=== PATIENT | male | born 1995 | race Caucasian/White ===

== ENCOUNTER 2016-03-08 10:26 | Emergency (ER) | payer SELFPAY ==
[~2016-03-08] VITALS: Ht 180.3 cm; Wt 102.1 kg
[2016-03-08 10:55] VITALS: BP 114/63
[2016-03-08] MEDS ORDERED: FLUT9.9S NS (11:41)
--- NOTE | 2016-03-08 11:41 | PHYS DOC ---
Past Medical History Past Medical History: No Pertinent History Past Surgical History: No Surgical History Smoking: Less than 1pk/day Alcohol Use: None Drug Use: None Adult General Chief Complaint Chief Complaint: EARACHE/EAR PAIN HPI HPI Patient is a 20 year old male who presents with ear pain for 3 days. He reports that he began to feel pressure in the right ear and now has both ears infected. He's also had nasal congestion. He denies fever, sore throat, cough, or drainage from the ears. He does not have a PCP. Review of Systems Review of Systems Constitutional: Denies fever or chills. [] Eyes: Denies change in visual acuity, redness, or eye pain. [] HENT: Denies sore throat. Reports bilateral ear pain and nasal congestion. Respiratory: Denies cough or shortness of breath. [] Integument: Denies rash or skin lesions. [] Neurologic: Denies headache, focal weakness or sensory changes. [] Allergies Allergies Allergies Coded Allergies Type Severity Reaction Last Updated Verified No Known Drug Allergies 03/08/16 No Physical Exam Physical Exam Constitutional: Well developed, well nourished, no acute distress, non-toxic appearance. [] HENT: Normocephalic, atraumatic, bilateral external ears normal, oropharynx moist, no oral exudates, nose normal. Bilateral TMs without erythema or bulging. There is no cerumen impaction. There is no posterior pharyngeal erythema or tonsillar edema. The bilateral nasal turbinates are swollen and erythematous with purulent drainage. Eyes: PERRLA, EOMI, conjunctiva normal, no discharge. [] Neck: Normal range of motion, no tenderness, supple, no stridor. [] Cardiovascular: Heart rate regular rhythm, no murmur [] Lungs & Thorax: Bilateral breath sounds clear to auscultation without wheezing , rales, or rhonchi. Skin: Warm, dry, no erythema, no rash. [] Neurologic: Alert and oriented X 3, normal motor function, normal sensory function, no focal deficits noted. [] Psychologic: Affect normal, judgement normal, mood normal. [] Current Patient Data Vital Signs Vital Signs Date Time Temp Pulse Resp B/P Pulse Ox O2 Delivery O2 Flow Rate FiO2 03/08/16 10:55 97.7 66 18 99 Room Air 97.7 EKG EKG [] Radiology/Procedures Radiology/Procedures [] Course & Med Decision Making Course & Med Decision Making Pertinent Labs and Imaging studies reviewed. (See chart for details) [] Dragon Disclaimer Dragon Disclaimer This electronic medical record was generated, in whole or in part, using a voice recognition dictation system. Departure Departure Impression: Primary Impression: Otalgia Additional Impression: Nasal congestion Disposition: 01 HOME, SELF-CARE Condition: STABLE Referrals: PATRICK ENRIQEUZ (PCP) Patient Instructions: Otalgia-Brief Additional Instructions: You do not have an infection in your ears or wax buildup. Your ear pain appears to be related to your nasal congestion. Please use the prescribed nasal spray to decrease nasal drainage and decreased swelling in the nose. Please use the prescribed nose spray daily. Please follow-up with a primary care doctor if your symptoms continue. Return to emergency department if you have any new or concerning symptoms. Scripts Fluticasone Propionate (Flonase Allergy Relief)9.9 Ml [place].susp2 Sprays NS DAILY #1 BOTTLE Prov:ERIN CASAS 03/08/16 Problem Qualifiers Primary Impression: Otalgia Laterality: bilateral Qualified Code: H92.03 - Otalgia, bilateral ERIN CASAS Mar 08, 2016 11:41
== END 2016-03-08 11:51 | disposition home or self-care (01) ==
LOC: ER 10:26
DX: H92.03 Otalgia, bilateral (principal); R09.81 Nasal congestion; F17.200 Nicotine dependence, unspecified, uncomplicated
CPT/HCPCS: 99282

== ENCOUNTER 2016-05-09 17:26 | Emergency (ER) | payer SELFPAY ==
[~2016-05-09] VITALS: Ht 180.3 cm; Wt 102.1 kg
[~2016-05-09 17:26] MED LIST: FLUT9.9S NS
[2016-05-09 17:29] VITALS: BP 130/72
[2016-05-09] MEDS ORDERED: IBUPROFEN 800 MG TABLET. PO ONE (18:00)
--- NOTE | 2016-05-09 18:04 | PHYS DOC ---
Past Medical History Past Medical History: No Pertinent History Past Surgical History: No Surgical History Additional Information: 1 PPD Alcohol Use: None Drug Use: None Adult General Chief Complaint Chief Complaint: DIZZY/LIGHT HEADED [facility] HPI Patient is a 20 year old male presents to the emergency department stating that he has had a cough congestion nausea vomiting with dizziness for the last 3 -4 days. He states that he had a fever when he checked in today. He has not taken anything [id number] for the discomfort. Patient does state he has a history of smoking. Patient states that he has vomited approximately 6 times within the last 24 hours. She'll states that the vomitus more of the mucous- type secretions, denies blood in the emesis. Review of Systems Review of Systems Constitutional: Denies fever or chills [] Eyes: Denies change in visual acuity, redness, or eye pain [] HENT: nasal congestion denies sore throat [] Respiratory: cough denies shortness of breath [] Cardiovascular: No additional information not addressed in HPI [] GI: Denies abdominal pain, nausea, vomiting, bloody stools or diarrhea [] : Denies dysuria or hematuria [] Musculoskeletal: Denies back pain or joint pain [] Integument: Denies rash or skin lesions [] Neurologic: headache, focal weakness or sensory changes [] Current Medications Current Medications Current Medications Medications (Trade) Dose Ordered Sig/Sowmya Start Time Stop Time Status Last Admin Dose Admin Ibuprofen (Motrin) 800 mg 1X ONCE 05/09/16 18:00 05/09/16 18:14 DC 05/09/16 18:06 800 MG Allergies Allergies Allergies Coded Allergies Type Severity Reaction Last Updated Verified No Known Drug Allergies 03/08/16 No Physical Exam Physical Exam Constitutional: Well developed, well nourished, no acute distress, non-toxic appearance. [] HENT: Normocephalic, atraumatic, bilateral external ears normal, oropharynx moist, no oral exudates, nose normal. Bilateral tympanic membranes appear to be normal. Patient frontal sinus tenderness. No maxillary sinus tenderness noted. Throat with erythematous, no exudate noted uvula appears to be with no deviation. Eyes: PERRLA, EOMI, conjunctiva normal, no discharge. [] Neck: Normal range of motion, no tenderness, supple, no stridor. [] Cardiovascular:Heart rate regular rhythm, no murmur [] Lungs & Thorax: Bilateral breath sounds clear to auscultation [] Skin: Warm, dry, no erythema, no rash. [] Back: No tenderness Extremities: No tenderness, no cyanosis, no clubbing, ROM intact, no edema. [] Neurologic: Alert and oriented X 3, normal motor function, normal sensory function, no focal deficits noted. [] Psychologic: Affect normal, judgement normal, mood normal. [] Current Patient Data Vital Signs Vital Signs Date Time Temp Pulse Resp B/P Pulse Ox O2 Delivery O2 Flow Rate FiO2 05/09/16 17:29 100.4 106 20 130/72 99 Room Air 100.4 Lab Values Laboratory Tests Test 05/09/16 17:20 Influenza Type A Antigen Negative (NEGATIVE) Influenza Type B Antigen Negative (NEGATIVE) EKG EKG [] Radiology/Procedures Radiology/Procedures [] Course & Med Decision Making Course & Med Decision Making Pertinent Labs and Imaging studies reviewed. (See chart for details) Chest x-ray was negative per Dr. Pugh. Influenza swabs were negative. Patient did have frontal sinus tenderness will treat patient with some Augmentin 1 tablet twice a day for the next 10 days. Recommended Sudafed and Mucinex DM [id number]. Patient was provided with signs and symptoms to return back to emergency department. Patient be discharged home in stable condition. [] Dragon Disclaimer Dragon Disclaimer This electronic medical record was generated, in whole or in part, using a voice recognition dictation system. Departure Departure Impression: Primary Impression: Sinusitis Disposition: HOME, SELF-CARE Condition: STABLE Referrals: NO PCP (PCP) Patient Instructions: Sinusitis, Vtja-gb-Disy Additional Instructions: Home to rest Medication as prescribed. Sudafed as prescribed by java enterprise architect [id number]. Mucinex DM will help with the congestion take this as directed by the java enterprise architect as well. Drink plenty of fluids such as water propel or Gatorade. Follow-up primary care physician next 7-10 days. Return back to emergency prior signs symptoms of become worse. Scripts Amoxicillin/Potassium Clav (Augmentin 875-125 Tablet)1 Each Tablet1 Tab PO BID # 20 TAB Prov:CLARISSE MCGUIRE APRN 05/09/16 CLARISSE MCGUIRE APRN May 09, 2016 18:04
[2016-05-09 18:15] LABS: OBC FLU VALID
[2016-05-09] MEDS ORDERED: AMOX1TAB61 PO (18:34)
--- NOTE | 2016-05-10 08:04 | RAD ---
Indication cough. Congestion. Fever. Duration of symptoms 2 days. PA and lateral views of the chest were obtained. No prior imaging of the chest is available. The heart, pulmonary vessels and mediastinum appear normal. The lungs are clear. There is no pleural fluid or pneumothorax. IMPRESSION: Normal two-view chest
[2016-05-10] MEDS ORDERED: CYCL10TA2 PO (19:44)
[2016-05-10] MEDS ORDERED: ONDA4TAB10 PO (19:44)
== END 2016-05-09 18:39 | disposition home or self-care (01) ==
LOC: ER 17:26
DX: J32.1 Chronic frontal sinusitis (principal); R11.2 Nausea with vomiting, unspecified; F17.200 Nicotine dependence, unspecified, uncomplicated
CPT/HCPCS: 71020; 87804; 99285-25

== ENCOUNTER 2016-05-10 18:44 | Emergency (ER) | payer SELFPAY ==
[~2016-05-10] VITALS: Ht 177.8 cm; Wt 102.1 kg
[~2016-05-10 18:44] MED LIST changes: +AMOX1TAB61 PO
[2016-05-10 19:01] VITALS: BP 122/82
[2016-05-10] MEDS ORDERED: ONDA4TAB10 PO (19:44)
[2016-05-10] MEDS ORDERED: CYCL10TA2 PO (19:44)
[2016-05-10] MEDS ORDERED: ONDANSETRON ODT 4 MG TAB.RAPDIS. PO ONE (19:45)
--- NOTE | 2016-05-10 19:45 | PHYS DOC ---
Past Medical History Past Medical History: No Pertinent History Past Surgical History: No Surgical History Additional Information: 1 PPD Alcohol Use: None Drug Use: None Adult General Chief Complaint Chief Complaint: LOWER BACK PAIN OR INJURY [facility] [employer] HPI Patient is a 20 year old female presents emergency department stating that he is having lower back pain. His also spiked stating that he is having nausea and vomiting. He states the vomiting started last night after he was discharged here from the emergency department for sinusitis. He states the back pain is been occurring for the last week after lifting weights. He states that he heard a pop. He states that he's had occasional numbness and tingling into his arms and his legs that happened yesterday but denies any today. Is not taken anything for pain and discomfort. Patient also states that he has not filled his prescription for his Augmentin last night either. Review of Systems Review of Systems Constitutional: Denies fever or chills [] Eyes: Denies change in visual acuity, redness, or eye pain [] HENT: Denies nasal congestion or sore throat [] Respiratory: Denies cough or shortness of breath [] Cardiovascular: No additional information not addressed in HPI [] GI: Denies abdominal pain,bloody stools or diarrhea. C/o nausea and vomiting : Denies dysuria or hematuria [] Musculoskeletal: low back pain denies joint pain [] Integument: Denies rash or skin lesions [] Neurologic: Denies headache, focal weakness or sensory changes [] Allergies Allergies Allergies Coded Allergies Type Severity Reaction Last Updated Verified No Known Drug Allergies 03/08/16 No Physical Exam Physical Exam Constitutional: Well developed, well nourished, no acute distress, non-toxic appearance. [] HENT: Normocephalic, atraumatic, bilateral external ears normal, oropharynx moist, no oral exudates, nose normal. [] Eyes: PERRLA, EOMI, conjunctiva normal, no discharge. [] Neck: Normal range of motion, no tenderness, supple, no stridor. [] Cardiovascular:Heart rate regular rhythm, no murmur [] Lungs & Thorax: Bilateral breath sounds clear to auscultation [] Abdomen: Bowel sounds normal, soft, no tenderness, no masses, no pulsatile masses. [] Skin: Warm, dry, no erythema, no rash. [] Back: No lumbar spine tenderness noted with no step-offs no deformities and no crepitus. Patient did have lower back tenderness across the lumbar area. Patient is able to lift both legs without difficulty. He does have increased discomfort when pressing legs. Extremities: No tenderness, no cyanosis, no clubbing, ROM intact, no edema. Shunt was noted to have equal strength in the upper extremities. Neurologic: Alert and oriented X 3, normal motor function, normal sensory function, no focal deficits noted. [] Psychologic: Affect normal, judgement normal, mood normal. [] Current Patient Data Vital Signs Vital Signs Date Time Temp Pulse Resp B/P Pulse Ox O2 Delivery O2 Flow Rate FiO2 05/10/16 19:01 100.2 100 18 122/82 99 Room Air 100.2 EKG EKG [] Radiology/Procedures Radiology/Procedures [] Course & Med Decision Making Course & Med Decision Making Pertinent Labs and Imaging studies reviewed. (See chart for details) Patient will be provided with Zofran for home. Recommended ibuprofen and Tylenol for pain and discomfort. We'll also provide some Flexeril. Patient will be discharged home in stable condition since symptoms to return back to emergency department as been provided. Parent agrees with discharge instructions treatment regimens and follow-up recommendations. She was instructed that Flexeril will cause drowsiness do not take any be alert and oriented. [] Dragon Disclaimer Dragon Disclaimer This electronic medical record was generated, in whole or in part, using a voice recognition dictation system. Departure Departure Impression: Primary Impression: Back pain Additional Impression: Nausea & vomiting Disposition: 01 HOME, SELF-CARE Condition: STABLE Referrals: NO PCP (PCP) Patient Instructions: Back Pain, Adult, [id number]-[id number], Clear Liquid Diet, Easy- to-Read, Nausea and Vomiting, Ayyk-[id number] Additional Instructions: Activity as tolerated. Tylenol or ibuprofen for pain and discomfort. Flexeril will cause drowsiness do not take any be alert and oriented. This will help with muscle spasms. Zofran for nausea and vomiting. Clear liquid diet for the next 24 hours. Follow-up through primary care physician in the next 3-5 days. Return back to emergency prior signs symptoms of become worse. Scripts Ondansetron (Zofran Odt)4 Mg Tab.rapdis4 Mg PO BID PRN NAUSEA/VOMITING #10 TAB Prov:CLARISSE MCGUIRE RN PATIENT CARE 05/10/16 Cyclobenzaprine Hcl 10 Mg Shxnao27 Mg PO TID #20 TAB Prov:CLARISSE MCGUIRE APRN 05/10/16 Problem Qualifiers CLARISSE MCGUIRE APRN May 10, 2016 19:45
== END 2016-05-10 20:00 | disposition home or self-care (01) ==
LOC: ER 18:44
DX: M54.5 Low back pain (principal); R11.2 Nausea with vomiting, unspecified; R20.0 Anesthesia of skin; F17.200 Nicotine dependence, unspecified, uncomplicated
CPT/HCPCS: 99283; Q0162

== ENCOUNTER 2016-06-13 21:59 | Emergency (ER) | payer SELFPAY ==
[~2016-06-13] VITALS: Ht 177.8 cm; Wt 97.5 kg
[~2016-06-13 21:59] MED LIST changes: +CYCL10TA2 PO; +ONDA4TAB10 PO
[2016-06-13 22:25] VITALS: BP 129/59
[2016-06-13] MEDS ORDERED: PROM12.56 PO (22:38)
--- NOTE | 2016-06-13 22:38 | PHYS DOC ---
Past Medical History Past Medical History: No Pertinent History Past Surgical History: No Surgical History Alcohol Use: None Drug Use: None Adult General Chief Complaint Chief Complaint: ABDOMINAL PAIN HPI HPI Patient is a 20 year old male who presents at the request of his boss for 3 days of mild intermittent nausea and vomiting of nonbloody nonbilious emesis, mild epigastric crampy abdominal pains, mild rhinorrhea and dry cough, and mild body aches. He is taking no medications for this. He last vomited this morning. He has been tolerating oral intake since that time. He denies diarrhea, bloody or dark stools, dyspnea, chest pain, rash, sore throat, sick contacts. Review of Systems Review of Systems Constitutional: Denies fever or chills [] Eyes: Denies change in visual acuity, redness, or eye pain [] HENT: Denies nasal congestion or sore throat [] Respiratory: Denies shortness of breath [] Cardiovascular: No additional information not addressed in HPI [] GI: Denies bloody stools or diarrhea [] : Denies dysuria or hematuria [] Musculoskeletal: Denies back pain or joint pain [] Integument: Denies rash or skin lesions [] Neurologic: Denies headache, focal weakness or sensory changes [] Endocrine: Denies polyuria or polydipsia [] Allergies Allergies Allergies Coded Allergies Type Severity Reaction Last Updated Verified No Known Drug Allergies 03/08/16 No Physical Exam Physical Exam Constitutional: Well developed, well nourished, no acute distress, non-toxic appearance. [] HENT: Normocephalic, atraumatic, bilateral external ears normal, oropharynx moist, no oral exudates, nose normal. [] Eyes: PERRLA, EOMI, conjunctiva normal, no discharge. [] Neck: Normal range of motion, supple, no stridor. [] Cardiovascular:Heart rate regular rhythm [] Lungs & Thorax: Bilateral breath sounds clear to auscultation [] Abdomen: Bowel sounds normal, soft, no tenderness. [] Skin: Warm, dry, no erythema, no rash. [] Back: Normal range of motion. [] Extremities: ROM intact, no edema. [] Neurologic: Alert and oriented X 3, normal motor function, normal sensory function, no focal deficits noted. [] Psychologic: Affect normal, judgement normal, mood normal. [] Current Patient Data Vital Signs Vital Signs Date Time Temp Pulse Resp B/P (MAP) Pulse Ox O2 Delivery O2 Flow Rate FiO2 06/13/16 22:25 98.1 64 18 129/59 (82) 98 Room Air 98.1 Course & Med Decision Making Course & Med Decision Making Discussed symptomatic management. Work note provided. Return precautions given. He understands and agrees with plan. Dragon Disclaimer Dragon Disclaimer This electronic medical record was generated, in whole or in part, using a voice recognition dictation system. Departure Departure Impression: Primary Impression: Nausea & vomiting Disposition: HOME, SELF-CARE Condition: STABLE Referrals: NO PCP (PCP) Patient Instructions: Nausea and Vomiting, Litz-gx-Tvwm Additional Instructions: Take promethazine as needed for nausea. Drink liquids to stay hydrated. Follow up with your primary care doctor. Return for any concerns. Scripts Promethazine Hcl (PROMETHAZINE HCL) 12.5 Mg Tablet 1 TAB PO Q6-8HRS Y for NAUSEA, #8 TAB 0 Refills Prov: Ho PAYTON MD 06/13/16 Problem Qualifiers Primary Impression: Nausea & vomiting Vomiting type: unspecified Vomiting Intractability: non-intractable Qualified Codes: R11.2 - Nausea with vomiting, unspecified Ho PAYTON MD June 13, 2016 22:38
== END 2016-06-13 22:40 | disposition home or self-care (01) ==
LOC: ER 21:59
DX: R11.2 Nausea with vomiting, unspecified (principal); R10.13 Epigastric pain; R05 Cough; M79.1 Myalgia; J34.89 Other specified disorders of nose and nasal sinuses
CPT/HCPCS: 99283

== ENCOUNTER 2017-01-08 17:20 | Emergency (ER) | payer SELFPAY ==
[~2017-01-08] VITALS: Ht 180.3 cm; Wt 90.7 kg
[~2017-01-08 17:20] MED LIST changes: +ACET-704 PO; +AMOX500C PO; +PROM12.56 PO
[2017-01-08 17:26] VITALS: BP 127/58
[2017-01-08] MEDS ORDERED: NAPR-683 PO (17:55)
[2017-01-08] MEDS ORDERED: AMOX875T PO (17:55)
--- NOTE | 2017-01-08 17:55 | PHYS DOC ---
Past Medical History Past Medical History: No Pertinent History Past Surgical History: No Surgical History Alcohol Use: None Drug Use: None Adult General Chief Complaint Chief Complaint: DENTAL PROBLEM HPI HPI Patient is a 21 year old male presents to the emergency department with complaints of left upper dental pain for 4 days. He noted mild facial swelling today. He states that he has not had a fever. No difficulty with swallowing or phonation. Review of Systems Review of Systems Constitutional: Denies fever or chills [] Eyes: Denies change in visual acuity, redness, or eye pain [] HENT: Denies nasal congestion or sore throat, complaining of dental pain, mild facial swelling [] Respiratory: Denies cough or shortness of breath [] Cardiovascular: No additional information not addressed in HPI [] GI: Denies abdominal pain, nausea, vomiting, bloody stools or diarrhea [] : Denies dysuria or hematuria [] Musculoskeletal: Denies back pain or joint pain [] Integument: Denies rash or skin lesions [] Neurologic: Denies headache, focal weakness or sensory changes [] Endocrine: Denies polyuria or polydipsia [] All other systems were reviewed and found to be within normal limits, except as documented in this note. Allergies Allergies Allergies Coded Allergies Type Severity Reaction Last Updated Verified No Known Drug Allergies 03/08/16 No Physical Exam Physical Exam Constitutional: Well developed, well nourished, no acute distress, non-toxic appearance. [] HENT: Normocephalic, atraumatic, bilateral external ears normal, oropharynx moist, no oral exudates, nose normal. Partial eruption of tooth #1. Gingiva with erythema, to palpate. He has mild swelling to the left side of the face. There is no erythema. Eyes: PERRLA, EOMI, conjunctiva normal, no discharge. [] Neck: Normal range of motion, no tenderness, supple felt lymphadenopathy, no stridor. [] Cardiovascular:Heart rate regular rhythm, no murmur [] Lungs & Thorax: Bilateral breath sounds clear to auscultation [] Skin: Warm, dry, no erythema, no rash. [] Neurologic: Alert and oriented X 3, normal motor function, normal sensory function, no focal deficits noted. [] Psychologic: Affect normal, judgement normal, mood normal. [] Current Patient Data Vital Signs Vital Signs Date Time Temp Pulse Resp B/P (MAP) Pulse Ox O2 Delivery O2 Flow Rate FiO2 01/08/17 17:26 98.1 71 18 100 Room Air 98.1 EKG EKG [] Radiology/Procedures Radiology/Procedures [] Course & Med Decision Making Course & Med Decision Making Pertinent Labs and Imaging studies reviewed. (See chart for details) [] Dragon Disclaimer Dragon Disclaimer This electronic medical record was generated, in whole or in part, using a voice recognition dictation system. Departure Departure Impression: Primary Impression: Dental abscess Additional Impression: Pain, dental Disposition: HOME, SELF-CARE Condition: STABLE Referrals: NO PCP (PCP) [facility] Patient Instructions: Dental Abscess Scripts Naproxen (NAPROSYN) 500 Mg Tablet 500 MG PO BID Y for PAIN, #20 TAB Prov: TIFFANIE CARRERA APRN 01/08/17 Amoxicillin (AMOXICILLIN) 875 Mg Tablet 1 TAB PO BID, #20 TAB Prov: TIFFANIE CARRERA APRN 01/08/17 Problem Qualifiers TIFFANIE CARRERA APRN Jan 08, 2017 17:55
[2017-01-08] MEDS ORDERED: KETOROLAC 60 MG/2 ML INJ. IM ONE (18:15)
== END 2017-01-08 18:09 | disposition home or self-care (01) ==
LOC: ER 17:20
DX: K04.7 Periapical abscess without sinus (principal)
CPT/HCPCS: 96372; 99283; J1885

== ENCOUNTER 2017-07-04 20:42 | Emergency (ER) | payer SELFPAY ==
[2017-07-04 21:44] LABS: ADD MAN DIFF? NO
[2017-07-04 21:49] LABS: BASO % 1 % (0-3); EOS # 0.1 x10^3/uL (0.0-0.7); EOS % 2 % (0-3); LYMPH # 2.6 x10^3/uL (1.0-4.8); LYMPH % 39 % (24-48); MEAN CORPUSCULAR HEMOGLOBIN 34 pg (25-35); MEAN CORPUSCULAR HGB CONC 36 g/dL (31-37); MEAN CORPUSCULAR VOLUME 93 fL (79-100); MONO # 0.6 x10^3/uL (0.0-1.1); MONO % 9 % (0-9); NEUT # 3.2 x10^3uL (1.8-7.7); NEUT % 49 % (31-73); PLATELET COUNT 171 x10^3/uL (140-400); RED BLOOD COUNT 5.68 x10^6/uL (4.30-5.70); RED CELL DISTRIBUTION WIDTH 12.6 % (11.5-14.5); WHITE BLOOD COUNT 6.6 x10^3/uL (4.0-11.0)
[2017-07-04 21:58] LABS: ANION GAP 13 (6-14); BLOOD UREA NITROGEN 9 mg/dL (8-26); BUN/CREATININE RATIO 9 (6-20); CALCIUM 9.9 mg/dL (8.5-10.1); CARBON DIOXIDE 22 mmol/L (21-32); CHLORIDE 101 mmol/L (98-107); GFR 94.3; GLUCOSE 88 mg/dL (70-99); POTASSIUM 3.2 mmol/L (3.5-5.1); SODIUM 136 mmol/L (136-145)
[2017-07-04 22:04] LABS: ALBUMIN/GLOBULIN RATIO 1.3 (1.0-1.7); ALK PHOS 87 U/L (46-116); ALT (SGPT) 23 U/L (16-63); AST (SGOT) 14 U/L (15-37); CREATINE KINASE 140 U/L (39-308); LIPASE 51 U/L (73-393); TOTAL BILIRUBIN 2.8 mg/dL (0.2-1.0); TOTAL PROTEIN 8.8 g/dL (6.4-8.2)
[2017-07-04 22:05] LABS: TROPONINI < 0.017 ng/mL (0.000-0.055)
[2017-07-04] MEDS: KETOROLAC 30 MG/ML INJ. IV (22:07)
[2017-07-04] MEDS: ALPRAZolam 0.5 MG TABLET PO (22:07)
[2017-07-04 22:13] LABS: CKMB INDEX 0.4 % (0-4); CKMB MASS 0.5 ng/mL (0.0-3.6); CREATINE KINASE 139 U/L (39-308)
[2017-07-04] MEDS: POTASSIUM CHLORIDE 20 MEQ TABLET.ER. PO (23:16)
== END 2017-07-04 23:33 | disposition home or self-care (01) ==
LOC: ER 23:33
DX: F15.980 Other stimulant use, unspecified with stimulant-induced anxiety disorder (principal); F31.9 Bipolar disorder, unspecified
CPT/HCPCS: 36415; 71045; 80053; 82550; 82553; 83690; 84484; 85025; 93005; 96374; 99285-25; J1885

== ENCOUNTER 2017-08-26 18:31 | Emergency (ER) | payer SELFPAY ==
[2017-08-26] MEDS: KETOROLAC 60 MG/2 ML INJ. IM (19:01)
== END 2017-08-26 19:28 | disposition home or self-care (01) ==
LOC: ER 18:31
DX: K05.6 Periodontal disease, unspecified (principal); F41.9 Anxiety disorder, unspecified; F32.9 Major depressive disorder, single episode, unspecified
CPT/HCPCS: 96372; 99283; J1885

== ENCOUNTER 2017-10-27 15:05 | Emergency (ER) | payer SELFPAY ==
[~2017-10-27] VITALS: Ht 180.3 cm; Wt 99.8 kg
[~2017-10-27 15:05] MED LIST changes: +AMOX875T PO; +NAPR-683 PO
--- NOTE | 2017-10-27 15:33 | PHYS DOC ---
Past Medical History Past Medical History: Anxiety, Depression Past Surgical History: No Surgical History Alcohol Use: Occasionally Drug Use: Methamphetamine Adult General Chief Complaint Chief Complaint: DENTAL PROBLEM HPI HPI 22-year-old male presents for evaluation of right mandibular molar pain for one year. He reports had a dental appointment today for the first time but was unable to pay and was not seen. He reports ongoing pain for one year. He understands that he still needs to get into the dentist but he is can have to wait until his next paycheck. Denies fevers or vomiting. Review of Systems Review of Systems Constitutional: Denies fever or chills [] E Integument: Denies rash or skin lesions [] Neurologic: Denies headache, focal weakness or sensory changes [] All other systems were reviewed and found to be within normal limits, except as documented in this note. Allergies Allergies Allergies Coded Allergies Type Severity Reaction Last Updated Verified No Known Drug Allergies 03/08/16 No Physical Exam Physical Exam Constitutional: Well developed, well nourished, no acute distress, non-toxic appearance. [] HENT: Normocephalic, atraumatic, bilateral external ears normal, oropharynx moist, no oral exudates, nose normal. Right lower mandibular molar pilar[] Neck: Normal range of motion, no tenderness, supple, no stridor. [] Skin: Warm, dry, no erythema, no rash. [] Back: No tenderness, no CVA tenderness. [] Neurologic: Alert and oriented X 3, normal motor function, normal sensory function, no focal deficits noted. [] Psychologic: Affect normal, judgement normal, mood normal. [] Current Patient Data Vital Signs Vital Signs Date Time Temp Pulse Resp B/P (MAP) Pulse Ox O2 Delivery O2 Flow Rate FiO2 10/27/17 15:38 98.4 79 16 124/62 (82) 99 Room Air 98.4 EKG EKG [] Radiology/Procedures Radiology/Procedures [] Course & Med Decision Making Course & Med Decision Making Discussed with patient will provide him a antibiotic, continue to take ibuprofen or Tylenol for discomfort, he understands that this is only a temporary solution, the problem has been ongoing for a year and he will still need to see a dentist for resolution of symptoms. [] Dragon Disclaimer Dragon Disclaimer This electronic medical record was generated, in whole or in part, using a voice recognition dictation system. Departure Departure Impression: Primary Impression: Pain, dental Disposition: HOME, SELF-CARE Condition: STABLE Referrals: NO PCP (PCP) Patient Instructions: Dental Pain Scripts Penicillin V Potassium (PENICILLIN V POTASSIUM) 500 Mg Tablet 1 TAB PO QID, #40 TAB 0 Refills Prov: MYNOR COLLIER APRN 10/27/17 MYNOR COLLIER APRN Oct 27, 2017 15:33
[2017-10-27] MEDS ORDERED: PENI500T PO (15:35)
[2017-10-27 15:38] VITALS: BP 124/62
== END 2017-10-27 15:52 | disposition home or self-care (01) ==
LOC: ER 15:05
DX: K08.89 Other specified disorders of teeth and supporting structures (principal)
CPT/HCPCS: 99283

== ENCOUNTER 2020-11-27 23:56 | Emergency (ER) | payer SELFPAY ==
[~2020-11-27 23:56] MED LIST changes: +PENI500T PO; -PROM12.56 PO; +PROM12.58 PO
== END 2020-11-28 01:08 | disposition left against medical advice (07) ==
LOC: ER 23:56
DX: R20.2 Paresthesia of skin (principal); Z53.21 Procedure and treatment not carried out due to patient leaving prior to being seen by health care provider